=== PATIENT | female | born 1990 | race Caucasian/White ===

== ENCOUNTER 2017-03-09 12:49 | Emergency (ER) | payer MEDICAID, OTHER ==
[~2017-03-09] VITALS: Ht 167.6 cm; Wt 87.0 kg
[~2017-03-09 12:49] MED LIST: DOCU-131 PO; IBUP-1222 PO; ONDA4TAB10 PO; OXYC-302 PO; OXYC-306 PO
[2017-03-09] MEDS ORDERED: ONDANSETRON 2MG/ML, 2ML IVPush ONE (13:30)
[2017-03-09] MEDS ORDERED: SODIUM CHLORIDE 0.9% 1,000ML IVBOLUS ONE (13:30)
[2017-03-09] MEDS ORDERED: DICYCLOMINE 10 MG/ML, 2ML IM ONE (13:30)
[2017-03-09] MEDS ORDERED: SODIUM CHLORIDE FLUSH 10ML SYR IVF ONE (13:30)
[2017-03-09] MEDS ORDERED: MORPHINE SULFATE 4 MG/ML, 1ML IVPush ONE (13:30)
[2017-03-09 13:47] LABS: BASOPHILS # (AUTO) 0.04 x10^3/uL (0-0.1); BASOPHILS % (AUTO) 0 % (0-1); EOSINOPHILS # (AUTO) 0.38 x10^3/uL (0-0.4); EOSINOPHILS % (AUTO) 3 % (1-7); LYMPHOCYTES # (AUTO) 2.26 x10^3/uL (1-3.4); LYMPHOCYTES % (AUTO) 16 % (22-44); MD NO; MEAN CORPUSCULAR HEMOGLOBIN 32.9 pg (27.0-34.8); MEAN CORPUSCULAR HGB CONC 33.6 g/dL (32.4-35.8); MEAN CORPUSCULAR VOLUME 97.9 fL (80-100); MEAN PLATELET VOLUME 7.7 fL (7.4-10.4); MONOCYTES # (AUTO) 1.08 x10^3/uL (0.2-0.8); MONOCYTES % (AUTO) 8 % (2-9); NEUTROPHILS # (AUTO) 10.75 x10^3/uL (1.8-6.8); NEUTROPHILS % (AUTO) 74 % (42-75); PLATELET COUNT 299 x10^3/uL (130-400); RED BLOOD COUNT 4.87 x10^6/uL (3.82-5.3); RED CELL DISTRIBUTION WIDTH 12.8 % (9.6-15.2)
[2017-03-09 14:00] LABS: ALANINE AMINOTRANSFERASE 55 U/L (12-78); ANION GAP 6 mmol/L (5-15); CALCIUM 8.6 mg/dL (8.5-10.1); CHLORIDE 109 mmol/L (98-107); CREATININE 0.79 mg/dL (0.55-1.02)
[2017-03-09] MEDS ORDERED: MAALOX/HYOSCYAMINE/LIDOCAINE 45 ML BTL PO ONE (14:00)
[2017-03-09 14:04] LABS: ALKALINE PHOSPHATASE 68 U/L (45-117); BILIRUBIN,TOTAL 0.4 mg/dL (0.2-1.0); TOTAL PROTEIN 7.9 g/dL (6.4-8.2)
[2017-03-09] MEDS ORDERED: DICYCLOMINE 10 MG/ML, 2ML ONE (14:04)
[2017-03-09] MEDS ORDERED: MORPHINE SULFATE 4 MG/ML, 1ML ONE (14:04)
[2017-03-09] MEDS ORDERED: MAALOX/HYOSCYAMINE/LIDOCAINE 45 ML BTL ONE (14:05)
[2017-03-09] MEDS ORDERED: ONDANSETRON 2MG/ML, 2ML ONE (14:05)
[2017-03-09 14:13] LABS: CULTURE INDICATED? NO; MICROSCOPIC NOT IND
[2017-03-09 15:05] VITALS: BP 135/33
== END 2017-03-09 15:07 | disposition home or self-care (01) ==
LOC: ED 15:01
DX: R10.84 Generalized abdominal pain (principal); R11.2 Nausea with vomiting, unspecified; R19.7 Diarrhea, unspecified; Z87.891 Personal history of nicotine dependence; Z90.49 Acquired absence of other specified parts of digestive tract
CPT/HCPCS: 36415; 80053; 81003; 83690; 84703; 85025; 96361; 96372; 96374; 96375; 99284; J0500; J2405; J7030

== ENCOUNTER 2019-01-29 22:57 | Emergency (ER) | payer SELFPAY ==
[~2019-01-29] VITALS: Ht 165.1 cm; Wt 96.5 kg
[2019-01-29 23:00] VITALS: BP 95/77
--- NOTE | 2019-01-29 23:16 | NUR ---
FIRST CONTACT WITH PT. PT REPORTS LEFT SIDE FACE AND HEAD PAIN. PT'S AOX4. RESPS EVEN AND UNLABORED. EDMD AT BEDSIDE TO EVALUATE AT THIS TIME.
[2019-01-29] MEDS ORDERED: DEXAMETHASONE 4 MG TABLET ONE (23:21)
[2019-01-29] MEDS ORDERED: ACETAMINOPHEN 500 MG TABLET ONE (23:21)
--- NOTE | 2019-01-29 23:23 | NUR ---
PT MEDICATED PER EMAR. PT TOLERATED WELL.
[2019-01-29] MEDS ORDERED: DEXAMETHASONE 4 MG TABLET PO ONE (23:30)
[2019-01-29] MEDS ORDERED: ACETAMINOPHEN 500 MG TABLET PO ONE (23:30)
--- NOTE | 2019-01-29 23:53 | NUR ---
Patient given discharge instructions and they have confirmed that they understand the instructions. Patient ambulatory with steady gait.
== END 2019-01-29 23:54 | disposition home or self-care (01) ==
LOC: ED 23:35
DX: J01.00 Acute maxillary sinusitis, unspecified (principal); F17.200 Nicotine dependence, unspecified, uncomplicated; Z90.49 Acquired absence of other specified parts of digestive tract
CPT/HCPCS: 99283

== ENCOUNTER → 2020-01-19 | Outpatient (CLI) | payer BC ==
[~2020-01-19] MED LIST changes: +GADOTERATE 10 MMOL/20 ML SYR ONE
== END | disposition home or self-care (01) ==
LOC: RAD 06:24
PROVIDERS: ATTEND Ophthalmology
DX: H53.2 Diplopia (principal); H50.89 Other specified strabismus
CPT/HCPCS: 70543; 70553; A9575